=== PATIENT | female | born 1960 | race Caucasian/White ===

== ENCOUNTER 2021-01-04 07:44 | Observation (INO) | payer BC ==
[2021-01-04 08:26] LABS: Urine Blood Negative (Negative); Urine Glucose Negative (Negative); Urine Protein Negative (Negative); Urine Specific Gravity 1.025 (1.005-1.030)
[2021-01-04] MEDS ORDERED: PROMETHAZINE INJ 25 MG/ML AMP ONE ×2 (08:51→11:37)
[2021-01-04] MEDS ORDERED: FENTANYL CITR 100 MCG/2 ML ONE ×3 (08:51→20:29)
[2021-01-04] MEDS ORDERED: FAMOTIDINE 20 MG/2 ML VIAL IV ONE (08:52)
--- NOTE | 2021-01-04 09:32 | RAD REPORT ---
EXAM DESCRIPTION: CT - Abdomen Pelvis W Contrast - 01/04/2021 8:46 am CLINICAL HISTORY: Abdominal pain COMPARISON: none. TECHNIQUE: Computed axial tomography of the abdomen pelvis was obtained. 100 cc Isovue-300 was admin istered intravenously. Oral contrast was not requested which limits evaluation of bowel. All CT scans are performed using dose optimization technique as appropriate and may include automated exposure control or mA/KV adjustment according to patient size. FINDINGS: Multiple gallstones. Mild gallbladder wall thickening. The liver, spleen, pancreas, adrenal and kidneys appear unremarkable. There is no evidence of diverticulitis. Normal appendix. Hysterectomy. Small hiatal hernia IMPRESSION: Cholelithiasis. Mild gallbladder wall thickening may indicate cholecystitis
--- NOTE | 2021-01-04 09:33 | RAD REPORT ---
EXAM DESCRIPTION: US - Abdomen Exam Limited - 01/04/2021 8:41 am CLINICAL HISTORY: Abdominal pain. COMPARISON: None. FINDINGS: Multiple gallstones. Mild gallbladder wall thickening The biliary tree is normal caliber. IMPRESSION: Cholelithiasis. Mild gallbladder wall thickening may indicate cholecystitis.
[2021-01-04 09:39] LABS: Absolute Lymphocytes (CBC) 0.6 K/uL (0.7-4.9); Basophils % 0.4 % (0-1.3); Hematocrit 36.6 % (36.0-45.0); Lymphocytes % 9.2 % (15.3-44.8); MPV 7.8 fL (7.6-11.3); Protime INR 1.12; RBC Red Blood Cell Count 4.07 M/uL (3.86-4.86)
[2021-01-04 09:51] LABS: ALT/SGPT 23 U/L (12-78); AST/SGOT 16 U/L (15-37); Albumin 4.1 g/dL (3.4-5.0); Alkaline Phosphatase 37 U/L (45-117); BUN Blood Urea Nitrogen 19 mg/dL (7-18); Bicarbonate 25 mmol/L (21-32); Bilirubin Direct 0.2 mg/dL (0-0.2); Bilirubin Total 0.7 mg/dL (0.2-1.0); Glucose Level 147 mg/dL (74-106); Lipase 115 U/L (73-393); Magnesium 1.8 mg/dL (1.8-2.4); NT PRO-BNP 213 pg/mL (<125); Protein, Total 7.4 g/dL (6.4-8.2); Sodium Level 138 mmol/L (136-145); Troponin (Emerg Dept Use Only) < 0.02 ng/mL (0.0-0.045)
[2021-01-04] MEDS ORDERED: NA CHLORIDE 0.9% 1,000 ML ONE (09:54)
--- NOTE | 2021-01-04 10:03 | RAD REPORT ---
EXAM DESCRIPTION: [place] Single View01/04/2021 8:54 am CLINICAL HISTORY: Abdominal pain COMPARISON: 2012 FINDINGS: The lungs appear clear of acute infiltrate. The heart is normal size IMPRESSION: No acute abnormalities displayed
[2021-01-04] MEDS ORDERED: Levofloxacin500mg IV 500 MG/100 ML BAG IV ONE (10:40)
--- NOTE | 2021-01-04 10:54 | ER ---
Nurse's Notes [facility] Name: Monalisa Guzman Age: 60 yrs Sex: Female : 1960 Arrival Date: 01/04/2021 Time: 07:48 Bed 13 Private MD: Diagnosis: Other cholelithiasis with obstruction;Acute cholecystitis Presentation: 01/04 07:55 Chief complaint: Patient states: Nausea and RUQ abdominal pain started Sunday and jl7 went to [place], was on clear liquids for 48 hrs, had eggs last night and it started again. Have not been able to follow-up with surgeon yet. Coronavirus screen: Vaccine status: Patient reports being unvaccinated. At this time, the client does not indicate any symptoms associated with coronavirus-19. Ebola Screen: No symptoms or risks identified at this time. Initial Sepsis Screen: Does the patient meet any 2 criteria? No. Patient's initial sepsis screen is negative. Does the patient have a suspected source of infection? No. Patient's initial sepsis screen is negative. Risk Assessment: Do you want to hurt yourself or someone else? Patient reports no desire to harm self or others. Onset of symptoms was January 04, 2021. 07:55 Method Of Arrival: Ambulatory [facility] 07:55 Acuity: HAIM 3 7 Historical: - Allergies: 07:57 Keflex; jl7 07:57 Codeine; jl7 - Home Meds: 07:57 fenofibrate 145 mg oral [Active]; aspirin 325 mg Oral TbEC 1 tab once daily [Active]; jl7 metoprolol tartrate 50 mg Oral tab 1 tab 2 times per day [Active]; fluoxetine 20 mg Oral cap 1 cap once daily [Active]; - PMHx: 07:57 Hypertensive disorder; melanoma; jl7 - PSHx: 07:57 section; Total abdominal hysterectomy; bilateral knees; melanoma removal on 7 right upper arm; - Immunization history:: Client reports having NOT received the Covid vaccine. - Social history:: Smoking status: Patient denies any tobacco usage or history of. - Family history:: not pertinent. Screenin:12 Abuse screen: Denies threats or abuse. Denies injuries from another. Nutritional ch5 screening: No deficits noted. Tuberculosis screening: No symptoms or risk factors identified. Fall Risk None identified. Assessment: 08:12 Reassessment: No changes from previously documented assessment. Pain: Pain currently is ch5 10 out of 10 on a pain scale. GI: Bowel sounds present X 4 quads. Abdomen is tender to palpation Reports nausea, vomiting. 08:12 General: Appears uncomfortable. [facility] 09:36 Reassessment: Patient appears in no apparent distress at this time. General: Appears in ch5 no apparent distress. comfortable. 23:14 Reassessment: Patient appears in no apparent distress at this time. Patient and/or ms4 family updated on plan of care and expected duration. Pain level reassessed. Pain: Complains of pain in right upper quadrant and epigastric area. 01/05 00:20 Reassessment: Patient appears in no apparent distress at this time. No changes from ms4 previously documented assessment. Patient and/or family updated on plan of care and expected duration. Pain level reassessed. Patient is alert, oriented x 3, equal unlabored respirations, skin warm/dry/pink. AWAITING TRANSFER. General: Appears in no apparent distress. Pain: Denies pain. 03:16 Reassessment: Patient appears in no apparent distress at this time. No changes from ms4 previously documented assessment. Patient and/or family updated on plan of care and expected duration. Pain level reassessed. Patient is alert, oriented x 3, equal unlabored respirations, skin warm/dry/pink. Pain: Denies pain. 06:16 Reassessment: Patient appears in no apparent distress at this time. No changes from fl4 previously documented assessment. Patient and/or family updated on plan of care and expected duration. Pain level reassessed. Patient is alert, oriented x 3, equal unlabored respirations, skin warm/dry/pink. General: Appears in no apparent distress. Pain: Denies pain. 08:00 Reassessment: Patient appears in no apparent distress at this time. Hospitalist at [facility] bedside. 09:46 Reassessment: Patient appears in no apparent distress at this time. Resting with eyes [facility] closed, call light in reach, on monitor. Vital Signs: 01/04 07:55 BP 179 / 96; Pulse 57; Resp 21; Temp 97.1; Pulse Ox 100% ; Weight 74.39 kg; Height 5 jl7 ft. 6 in. (167.64 cm); Pain 9/10; 08:12 BP 159 / 77; Pulse 57; Resp 18; Pulse Ox 100% on R/A; Pain 10/10; ch5 10:24 BP 162 / 78; Pulse 63; Resp 18; Pulse Ox 100% on R/A; Pain 2/10; ch5 16:04 BP 148 / 56; Pulse 66; Resp 20; Pulse Ox 100% on R/A; Pain 0/10; ch5 20:51 BP 181 / 93; Pulse 98; Resp 18; Pulse Ox 96% ; Pain 8/10; ms4 09/ 00:19 BP 158 / 82; Pulse 68; Resp 16; Pulse Ox 96% ; Pain 0/10; ms4 04:04 BP 168 / 107; Pulse 72; Resp 18; Pulse Ox 98% ; Pain 0/10; ms4 07:54 BP 158 / 92; Pulse 70; Resp 18; Pulse Ox 99% on R/A; Pain 0/10; ch5 09:43 BP 165 / 93; Pulse 68; Resp 20; Pulse Ox 93% on R/A; ch5 12:13 BP 161 / 94; Pulse 65; Resp 20; Pulse Ox 96% ; Pain 0/10; ch5 01/04 07:55 Body Mass Index 26.47 (74.39 kg, 167.64 cm) jl7 ED Course: 01/04 07:48 Patient arrived in ED. am2 07:57 Triage completed. jl7 07:57 Arm band placed on right wrist. jl7 08:03 Herson Corado MD is Attending Physician. [facility] 08:12 Sheldon Rivas, RN is Primary Nurse. ch5 08:12 Patient has correct armband on for positive identification. Bed in low position. Call ch5 light in reach. Side rails up X2. 08:12 No provider procedures requiring assistance completed. Inserted saline lock: 20 gauge ch5 in left antecubital area, using aseptic technique. 08:[address] and US by wheelchair. ch5 08:41 US Abdomen Limited In Process Unspecified. EDMS 08:46 CT Abd/Pelvis - IV Contrast Only In Process Unspecified. EDMS 08:53 XRAY Chest (1 view) In Process Unspecified. EDMS 09:25 Basic Metabolic Panel Sent. ch5 09:25 CBC with Diff Sent. ch5 09:25 LFT's Sent. ch5 10:52 Alfred Langley MD is Hospitalizing Provider. juan 11:37 Cholangiogram In Process Unspecified. EDMS 19:00 IV discontinued, intact, bleeding controlled. ms4 20:00 Inserted saline lock: 22 gauge in left antecubital area, using aseptic technique. ms4 21:40 still pending a bed from [facility]. mw2 01/05 00:43 initiated a transfer with Hannah from [facility] transfer center. mw2 00:48 [facility] denied due to capacity. mw2 01:08 initiated a transfer with Emily from [facility] transfer center. mw2 01:15 [facility] denied due to capacity. mw2 03:12 Primary Nurse role handed off by Sheldon Rivas, STACY ms4 03:12 Carol Kearney, STACY is Primary Nurse. ms4 03:26 all [facility] denied due to capacity. mw2 07:08 Primary Nurse role handed off by Carol Kearney RN 5 07:08 Sheldon Rivas, RN is Primary Nurse. 5 07:51 Attending Physician role handed off by Herson Corado MD rn 07:51 Orlando Shaw MD is Attending Physician. rn 07:56 Alfred Langley MD is Hospitalizing Provider. rn Administered Medications: 01/04 09:24 Drug: Pepcid (famotidine) 20 mg Route: IVP; Site: left antecubital; 5 09:24 Drug: NS 0.9% 1000 ml Route: IV; Rate: 1 bolus; Site: left antecubital; ch5 09:24 Drug: Phenergan (promethazine) 12.5 mg Route: IVP; Site: left antecubital; ch5 09:24 Not Given (Patient Refused): fentaNYL (PF) 25 mcg IVP once; RASS on ADMIN: Combtv4, ch5 Very Agttd3, Agttd2, Rstlss1, AlertClm0, Drwsy-1, Lt Sdtn-2, Mod Sdtn-3, Dp Sdtn-4, UnArsble-5 10:24 Drug: levofloxacin 500 mg Volume: 100 ml; Route: IVPB; Infused Over: 60 mins; Site: 5 left antecubital; 11:25 Follow up: IV Status: Completed infusion ch5 11:25 Drug: Phenergan (promethazine) 12.5 mg Route: IVP; Site: left antecubital; ch5 12:17 Follow up: Response: Nausea is decreased ch5 12:17 Drug: Potassium Chloride 20 mEq Route: IV; Rate: per protocol; Site: left antecubital; ch5 14:10 Follow up: IV Status: Completed infusion ch5 14:10 Drug: NS 0.9% with KCl 20 mEq/L 1000 ml Route: IV; Rate: 125 ml/hr; Site: left ch5 antecubital; 17:45 Drug: fentaNYL (PF) 25 mcg Route: IVP; Site: left antecubital; ch5 20:52 Drug: fentaNYL (PF) 25 mcg Route: IVP; Site: left antecubital; ms4 20:52 Drug: Zofran (Ondansetron) 4 mg Route: IVP; Site: left antecubital; ms4 22:45 Drug: fentaNYL (PF) 25 mcg Route: IVP; Site: left antecubital; ms4 22:45 Drug: Zofran (Ondansetron) 4 mg Route: IVP; Site: left antecubital; ms4 01/05 04:37 Drug: Promethazine 12.5 mg Route: IVP; Site: left antecubital; ms4 07:43 Drug: D5-1/2 NS 1000 ml Route: IV; Rate: 125 mg/hr; Site: left antecubital; ch5 11:56 Follow up: Response: No adverse reaction ch5 10:08 Drug: Flagyl (metroNIDAZOLE) 500 mg Volume: 100 ml; Route: IVPB; Rate: 200 ml/hr; ch5 Infused Over: 30 mins; Site: left antecubital; 10:54 Follow up: IV Status: Completed infusion ch5 11:00 Drug: Cipro (ciprofloxacin) 400 mg Volume: 200 ml; Route: IVPB; Infused Over: 60 mins; ch5 Site: left antecubital; 11:56 Follow up: IV Status: Completed infusion ch5 Outcome: 01/04 10:54 Decision to Hospitalize by Provider. [facility] 17:00 ER care complete, transfer ordered by . [facility] 01/05 07:57 Decision to Hospitalize by Provider. rn 14:35 Patient left the ED. 5 Signatures: Dispatcher [employer] Herson Allen MD MD cha Nieto, Roman, MD MD rn Lazaro, Brittni 5 Lili Cook RN RN jl7 Abbey Caro [facility] Hayder Dolna 2 Carol Kearney RN RN ms4 RboSheldon RN RN ch5
--- NOTE | 2021-01-04 10:54 | EDPHYS ---
Physician Documentation [facility] Name: Monalisa Guzman Age: 60 yrs Sex: Female : 1960 Arrival Date: 01/04/2021 Time: 07:48 Bed 13 Private MD: ED Physician Orlando Shaw HPI: 01/04 08:18 This 60 yrs old Female presents to ER via Ambulatory with complaints of juan Abdominal Pain, Nausea/Vomiting. 08:18 The patient presents to the emergency department with nausea, vomiting, that is juan intermittent. Onset: The symptoms/episode began/occurred 3 day(s) ago. Possible causes: unknown. The symptoms are aggravated by nothing. Associated signs and symptoms: The patient has no apparent associated signs or symptoms. Severity of symptoms: At their worst the symptoms were moderate in the emergency department the symptoms are unchanged. The patient has not experienced similar symptoms in the past. Historical: - Allergies: 07:57 Keflex; jl7 07:57 Codeine; jl7 - Home Meds: 07:57 fenofibrate 145 mg oral [Active]; aspirin 325 mg Oral TbEC 1 tab once daily [Active]; jl7 metoprolol tartrate 50 mg Oral tab 1 tab 2 times per day [Active]; fluoxetine 20 mg Oral cap 1 cap once daily [Active]; - PMHx: 07:57 Hypertensive disorder; melanoma; jl7 - PSHx: 07:57 section; Total abdominal hysterectomy; bilateral knees; melanoma removal on jl7 right upper arm; - Immunization history:: Client reports having NOT received the Covid vaccine. - Social history:: Smoking status: Patient denies any tobacco usage or history of. - Family history:: not pertinent. ROS: 08:18 Constitutional: Negative for fever, chills, and weight loss, Eyes: Negative for injury, juan pain, redness, and discharge, ENT: Negative for injury, pain, and discharge, Neck: Negative for injury, pain, and swelling, Cardiovascular: Negative for chest pain, palpitations, and edema, Respiratory: Negative for shortness of breath, cough, wheezing, and pleuritic chest pain, Back: Negative for injury and pain, : Negative for injury, bleeding, discharge, and swelling, MS/Extremity: Negative for injury and deformity, Skin: Negative for injury, rash, and discoloration, Neuro: Negative for headache, weakness, numbness, tingling, and seizure, Psych: Negative for depression, anxiety, suicide ideation, homicidal ideation, and hallucinations, Allergy/Immunology: Negative for hives, rash, and allergies, Endocrine: Negative for neck swelling, polydipsia, polyuria, polyphagia, and marked weight changes, Hematologic/Lymphatic: Negative for swollen nodes, abnormal bleeding, and unusual bruising. 08:18 Abdomen/GI: Positive for abdominal pain, nausea and vomiting, of the epigastric area and right upper quadrant. Exam: 08:18 Constitutional: This is a well developed, well nourished patient who is awake, alert, juan and in no acute distress. Head/Face: Normocephalic, atraumatic. Eyes: Pupils equal round and reactive to light, extra-ocular motions intact. Lids and lashes normal. Conjunctiva and sclera are non-icteric and not injected. Cornea within normal limits. Periorbital areas with no swelling, redness, or edema. ENT: Nares patent. No nasal discharge, no septal abnormalities noted. Tympanic membranes are normal and external auditory canals are clear. Oropharynx with no redness, swelling, or masses, exudates, or evidence of obstruction, uvula midline. Mucous membranes moist. Neck: Trachea midline, no thyromegaly or masses palpated, and no cervical lymphadenopathy. Supple, full range of motion without nuchal rigidity, or vertebral point tenderness. No Meningismus. Chest/axilla: Normal chest wall appearance and motion. Nontender with no deformity. No lesions are appreciated. Cardiovascular: Regular rate and rhythm with a normal S1 and S2. No gallops, murmurs, or rubs. Normal PMI, no JVD. No pulse deficits. Respiratory: Lungs have equal breath sounds bilaterally, clear to auscultation and percussion. No rales, rhonchi or wheezes noted. No increased work of breathing, no retractions or nasal flaring. Back: No spinal tenderness. No costovertebral tenderness. Full range of motion. Female : Normal external genitalia. MS/ Extremity: Pulses equal, no cyanosis. Neurovascular intact. Full, normal range of motion. Neuro: Awake and alert, GCS 15, oriented to person, place, time, and situation. Cranial nerves II-XII grossly intact. Motor strength 5/5 in all extremities. Sensory grossly intact. Cerebellar exam normal. Normal gait. Psych: Awake, alert, with orientation to person, place and time. Behavior, mood, and affect are within normal limits. 08:18 Abdomen/GI: Inspection: abdomen appears normal, Bowel sounds: normal, Palpation: mild abdominal tenderness, in the epigastric area and right upper quadrant, Liver: no appreciated palpable abnormalities, Hernia: not appreciated. 09:13 ECG was reviewed by the Attending Physician. [facility] Vital Signs: 07:55 BP 179 / 96; Pulse 57; Resp 21; Temp 97.1; Pulse Ox 100% ; Weight 74.39 kg; Height 5 jl7 ft. 6 in. (167.64 cm); Pain 9/10; 08:12 BP 159 / 77; Pulse 57; Resp 18; Pulse Ox 100% on R/A; Pain 10/10; ch5 10:24 BP 162 / 78; Pulse 63; Resp 18; Pulse Ox 100% on R/A; Pain 2/10; ch5 16:04 BP 148 / 56; Pulse 66; Resp 20; Pulse Ox 100% on R/A; Pain 0/10; ch5 20:51 BP 181 / 93; Pulse 98; Resp 18; Pulse Ox 96% ; Pain 8/10; ms4 09/01 00:19 BP 158 / 82; Pulse 68; Resp 16; Pulse Ox 96% ; Pain 0/10; ms4 04:04 BP 168 / 107; Pulse 72; Resp 18; Pulse Ox 98% ; Pain 0/10; ms4 07:54 BP 158 / 92; Pulse 70; Resp 18; Pulse Ox 99% on R/A; Pain 0/10; ch5 09:43 BP 165 / 93; Pulse 68; Resp 20; Pulse Ox 93% on R/A; ch5 12:13 BP 161 / 94; Pulse 65; Resp 20; Pulse Ox 96% ; Pain 0/10; ch5 01/04 07:55 Body Mass Index 26.47 (74.39 kg, 167.64 cm) jl7 MDM: 01/04 08:03 Patient medically screened. [facility] 08:18 Differential diagnosis: Nonspecific abd pain, gastritis, cholecystitis, pancreatitis, juan appendicitis, diverticulitis, viral gastroenteritis, gastroenteritis. Data reviewed: vital signs, nurses notes, lab test result(s), EKG, radiologic studies, CT scan, plain films, ultrasound. Data interpreted: threat monitoring analyst: rate is 57 beats/min, rhythm is regular, Pulse oximetry: on room air is 100 %. Test interpretation: by ED physician or midlevel provider: ECG, plain radiologic studies. Counseling: I had a detailed discussion with the patient and/or guardian regarding: the historical points, exam findings, and any diagnostic results supporting the discharge/admit diagnosis, lab results, radiology results. 01/05 07:54 ED course: Dr. Dunham consulted by oil house attendant overnight, per oil house attendant, rn Dr. Dunham will agree to see patient for Dora lithiasis/cholecystitis/possible choledocholithiasis. Patient has been unable to be transferred, initially requested transfer given no GI here by Dr. Ortiz. 07:56 Response to treatment: the patient's symptoms have markedly improved after treatment, rn and as a result, I will admit patient. Admission orders: after a detailed discussion of the patient's condition and case, the admit orders are written by me. 01/04 08:18 Order name: Basic Metabolic Panel [facility] 01/04 08:18 Order name: CBC with Diff [facility] 01/04 08:18 Order name: LFT's [facility] 01/04 08:18 Order name: Magnesium; Complete Time: 10:49 [facility] 01/04 08:18 Order name: NT PRO-BNP; Complete Time: 10:49 [facility] 01/04 08:18 Order name: PT-INR; Complete Time: 09:46 [facility] 01/04 08:18 Order name: Troponin (emerg Dept Use Only); Complete Time: 10:49 [facility] 01/04 08:18 Order name: Lipase; Complete Time: 10:49 [facility] 01/04 08:18 Order name: Basic Metabolic Panel; Complete Time: 10:49 [facility] 01/04 08:18 Order name: CBC with Automated Diff; Complete Time: 10:49 [facility] 01/04 08:18 Order name: Liver (Hepatic) Function; Complete Time: 10:49 [facility] 01/04 08:26 Order name: Urine Dipstick-Ancillary [facility] 01/04 09:46 Order name: CREATININE WHOLE BLOOD; Complete Time: 09:47 [facility] 01/04 08:18 Order name: XRAY Chest (1 view); Complete Time: 10:49 [facility] 01/04 08:18 Order name: CT Abd/Pelvis - IV Contrast Only; Complete Time: 09:46 [facility] 01/04 08:18 Order name: US Abdomen Limited; Complete Time: 09:46 [facility] 01/04 09:18 Order name: Cholangiogram; Complete Time: 16:56 [facility] 01/04 14:39 Order name: SARS-COV-2 RT PCR; Complete Time: 16:56 [facility] 01/04 18:22 Order name: Urinalysis; Complete Time: 20:05 [facility] 01/04 08:18 Order name: EKG; Complete Time: 08:18 [facility] 01/04 08:18 Order name: Cardiac monitoring; Complete Time: 09:25 [facility] 01/04 08:18 Order name: EKG - Nurse/Tech; Complete Time: 09:25 [facility] 01/04 08:18 Order name: IV Saline Lock; Complete Time: 08:21 [facility] 01/04 08:18 Order name: Labs collected and sent; Complete Time: 08:21 [facility] 01/04 08:18 Order name: O2 Per Protocol; Complete Time: 09:25 [facility] 01/04 08:18 Order name: O2 Sat Monitoring; Complete Time: 09:25 [facility] 01/04 08:30 Order name: Labs - recollect needed; Complete Time: 09:25 aa 01/05 08:43 Order name: CONS Physician Consult EDMS EC/31 09:13 Rate is 63 beats/min. Rhythm is regular. QRS [place] is Normal. [place] interval is normal. QRS juan interval is normal. QT interval is normal. No Q waves. T waves are Normal. No ST changes noted. Clinical impression: NSR w/ Non-specific ST/T Changes and No evidence of ischemia. Administered Medications: 09:24 Drug: Pepcid (famotidine) 20 mg Route: IVP; Site: left antecubital; ch5 09:24 Drug: NS 0.9% 1000 ml Route: IV; Rate: 1 bolus; Site: left antecubital; ch5 09:24 Drug: Phenergan (promethazine) 12.5 mg Route: IVP; Site: left antecubital; ch5 09:24 Not Given (Patient Refused): fentaNYL (PF) 25 mcg IVP once; RASS on ADMIN: Combtv4, ch5 Very Agttd3, Agttd2, Rstlss1, AlertClm0, Drwsy-1, Lt Sdtn-2, Mod Sdtn-3, Dp Sdtn-4, UnArsble-5 10:24 Drug: levofloxacin 500 mg Volume: 100 ml; Route: IVPB; Infused Over: 60 mins; Site: ch5 left antecubital; 11:25 Follow up: IV Status: Completed infusion ch5 11:25 Drug: Phenergan (promethazine) 12.5 mg Route: IVP; Site: left antecubital; ch5 12:17 Follow up: Response: Nausea is decreased ch5 12:17 Drug: Potassium Chloride 20 mEq Route: IV; Rate: per protocol; Site: left antecubital; ch5 14:10 Follow up: IV Status: Completed infusion ch5 14:10 Drug: NS 0.9% with KCl 20 mEq/L 1000 ml Route: IV; Rate: 125 ml/hr; Site: left ch5 antecubital; 17:45 Drug: fentaNYL (PF) 25 mcg Route: IVP; Site: left antecubital; ch5 20:52 Drug: fentaNYL (PF) 25 mcg Route: IVP; Site: left antecubital; ms4 20:52 Drug: Zofran (Ondansetron) 4 mg Route: IVP; Site: left antecubital; ms4 22:45 Drug: fentaNYL (PF) 25 mcg Route: IVP; Site: left antecubital; ms4 22:45 Drug: Zofran (Ondansetron) 4 mg Route: IVP; Site: left antecubital; ms4 01/05 04:37 Drug: Promethazine 12.5 mg Route: IVP; Site: left antecubital; ms4 07:43 Drug: D5-1/2 NS 1000 ml Route: IV; Rate: 125 mg/hr; Site: left antecubital; ch5 11:56 Follow up: Response: No adverse reaction ch5 10:08 Drug: Flagyl (metroNIDAZOLE) 500 mg Volume: 100 ml; Route: IVPB; Rate: 200 ml/hr; ch5 Infused Over: 30 mins; Site: left antecubital; 10:54 Follow up: IV Status: Completed infusion ch5 11:00 Drug: Cipro (ciprofloxacin) 400 mg Volume: 200 ml; Route: IVPB; Infused Over: 60 mins; ch5 Site: left antecubital; 11:56 Follow up: IV Status: Completed infusion ch5 Disposition Summary: 01/05/21 07:57 Hospitalization Ordered Hospitalization Status: Inpatient Admission(01/05/21 07:57) rn Provider: Alfred Langley(01/05/21 07:57) rn Condition: Stable(01/05/21 07:57) rn Problem: an ongoing problem(01/05/21 07:57) rn Symptoms: have improved(01/05/21 07:57) rn Bed/Room Type: Standard(01/05/21 07:57) rn Location: [facility] ER HOLD(01/05/21 11:49) bd Room Assignment: ERHOLD-(01/05/21 11:49) bd Diagnosis - Other cholelithiasis with obstruction(01/05/21 07:57) rn - Acute cholecystitis(01/05/21 07:57) rn Forms: - Medication Reconciliation Form rn - SBAR form rn Signatures: Dispatcher [employer] EDMS Taisha Kaye Corey, MD MD cha Nieto, Roman, MD MD rn Calderon, Audri, RN RN aa5 Lili Cook RN RN jl7 Natty Mullins MD MD ma2 Carol Kearney RN RN ms4 Sheldon Rivas, RN RN ch5 Corrections: (The following items were deleted from the chart) 01/04 13:44 13:03 CORONAVIRUS+.SUSANZ ordered. EDMS EDMS 16:59 10:54 Observation juan juan 16:59 10:54 Alfred Langley juan juan 16:59 10:54 Telemetry/MedSurg (Inpatient) juan juan 16:59 10:54 Stable juan juan 16:59 10:54 new juan juan 16:59 10:54 have improved juan juan 16:59 10:54 Standard juan juan 16:59 10:54 juan juan 16:59 10:54 Other cholelithiasis with obstruction juan juan 16:59 10:54 Acute cholecystitis juan juan 16:59 10:54 Hypokalemia juan juan 16:59 10:54 Abdominal tenderness juan juan 01/05 07:52 01/04 17:00 [facility] juan aclix 01/05 07:52 01/04 17:00 [facility] juan rn 01/05 07:52 01/04 17:00 Higher level of care juan rn 01/05 07:52 01/04 17:00 Fair juan rn 01/05 07:52 01/04 17:00 new juan rn 01/05 07:52 01/04 17:00 have improved juan rn 01/05 07:52 01/04 17:00 Other cholelithiasis with obstruction juan rn 01/05 07:52 01/04 17:00 Hypokalemia juan rn 01/05 07:52 01/04 17:00 Upper abdominal pain, unspecified juan rn 01/05 07:52 01/04 17:00 Calculus of gallbladder and bile duct with acute cholecystitis with rn obstruction juan 01/05 11:49 07:57 Telemetry/MedSurg (Inpatient) rn bd 11:49 07:57 rn bd
[2021-01-04] MEDS ORDERED: POTASSIUM CL SA 10 MEQ TAB PO ONE (11:51)
[2021-01-04] MEDS ORDERED: KCL 20 MEQ/100 mL IVPB 20 MEQ/100 ML BAG IV ONE (11:52)
[2021-01-04] MEDS ORDERED: NS KCL 20MEQ 1,000 ML IV ONE ×2 (11:55→22:52)
--- NOTE | 2021-01-04 12:14 | RAD REPORT ---
EXAM DESCRIPTION: MRICholangiogram01/04/2021 11:55 am CLINICAL HISTORY: Abdominal pain COMPARISON: January 04, 2021 cat scan and ultrasound TECHNIQUE: Magnetic resonance cholangiogram was performed.3D MIP reconstruction performed FINDINGS: Multiple small gallstones. Borderline dilatation of the common bile duct. Small stones suspected within the distal common bile d uct Pancreatic duct is normal caliber IMPRESSION: Cholelithiasis Borderline dilatation of the common bile duct. A small stone is suspected within distal common bile duct
[2021-01-04 18:33] LABS: Urine Appearance CLEAR (Clear); Urine Bilirubin NEGATIVE (Negative); Urine Blood NEGATIVE (Negative); Urine Color YELLOW (Yellow); Urine Glucose NEGATIVE (Negative); Urine Microscopic Reflex NO UMIC; Urine Protein NEGATIVE (Negative); Urine pH 7.5 (5.0-7.0)
--- NOTE | 2021-01-04 18:39 | CON ---
Date of Consultation: 01/04/2021 Brief History Of Present Illness: The patient is a 60-year-old female, who presents with a bdominal pain beginning approximately on Sunday, predominantly in the mid epigastric area associate d with nausea, vomiting. She noted nausea and vomiting, which are dominant, symptoms got worse, prog ressive to where she could not keep anything down. She noted that she had some minimal pain in the r ight upper quadrant, mostly tenderness; however, she had mild pain only. She went to [place] [facility] where an imaging was performed, which showed cholelithiasis. She was transferred here for higher level of care. Ultimately, repeat CT scan and ultrasound were performed here in addition to MRCP during her w orkup. She denies any fever, chills. Nausea is her predominant symptom. No systemic complaints. No sick contacts. No recent travel. No food exposures and she has no COVID exposures. Past Medical History: Hypertension, CVA, melanoma. Past Surgical History: Includes , total abdominal hysterectomy, bilateral knee surgery ____ surgery in the right upper extremity with revision. Had a complete axillary dissection on the right. She additionally had a urinary procedure, she cannot recall when she was 6 years old in her lower pelvis. Home Medications: Include fenofibrate, aspirin 325 mg, metoprolol, fluoxetine. Allergies: SHE HAS ALLERGIES TO KEFLEX AND CODEINE. Social History: She denies smoking, alcohol, or recreational drug use. Review of Systems: Ten-point review of systems other than HPI, denies. Physical Examination: General: At the time of my examination, she is awake, alert, and oriented. Psychiatric: She is appropriate, conversive. HEENT: She is normocephalic. Sclerae anicteric. Mucous membranes are moist. Oropharynx clear. Neck: Supple without JVD. Chest: Normal expansion and excursion. Cardiovascular: Regular rate and rhythm. Pulmonary: Clear to auscultation bilaterally. Abdomen: Soft with minimal right upper quadrant tenderness only to deep palpation. Negative Major sign. No rebound. No guarding. No focal peritonitis. Extremities: No clubbing, cyanosis, or edema. Skin: Warm and dry. She has a well-healed surgical scar on the right upper extremity from her melan reese surgery. Laboratory Data: She had laboratory exam, which reveals a white blood cell count of 6.4, hemoglobin 12.4, hematocrit of 36.6, platelet count 303. Coagulation shows PT , INR 1.12. Sodium was 138, potassium 3.0, chloride 105, carbon dioxide 25, BUN 19, creatinine 0.7, glucose is 147, calcium 9.0, total bilirubin 0.7, direct component 0.2, AST 16, ALT 23, alkaline phosphatase 37, lipase 115. Urine showed trace ketones only. Her COVID test was negative. She had imaging performed, which in cluded an abdominal ultrasound, which was officially read as cholelithiasis, mild gallbladder wall th ickening may indicate cholecystitis. Biliary tree is normal in caliber. She had a CT abdomen and pe lvis CT, which was officially read as multiple gallstones, mild gallbladder wall thickening, small hi atal hernia. She additionally had an MRCP, which was officially read as cholelithiasis, borderline d ilatation of common bile duct, small stone suspected within the distal common bile duct. Assessment And Plan: This is a 60-year-old female, who comes in with signs and symptoms of possible choledocholithiasis. 1.IV fluid hydration. 2.Antibiotic coverage. 3.The patient is due to get ERCP, but we have no GI consultation. As such, the patient is being tra nsferred for higher level of care at this point for ERCP if the patient is available to return. I hilario ve explained the risks, benefits, and alternatives of laparoscopic possible open cholecystectomy incl uding, but not limited to bleeding, infection, damage to surrounding tissue, need for further operati on and procedures, injury to bile ducts, intestines, bile leak, and other unforeseen complication related to anesthesia. The patient agrees to proceed as opal cated. TK/MODL Voice ID: [id number] Report ID: [id number]
[2021-01-04] MEDS ORDERED: ONDANSETRON 4 MG/2 ML VIAL ONE (20:29)
[2021-01-05] MEDS ORDERED: PROMETHAZINE INJ 25 MG/ML AMP ONE (04:53)
[2021-01-05] MEDS ORDERED: NA CHLORIDE 0.9% 50 ML ONE (04:54)
[2021-01-05] MEDS ORDERED: D5 0.45 NS 1,000 ML IV ONE (08:01)
[2021-01-05] MEDS ORDERED: HYDROMORPHONE HCL 0.5 MG/0.5 ML INJ IV PRN (09:22)
--- NOTE | 2021-01-05 09:31 | P.HP ---
Certification for Inpatient Patient admitted to: Observation With expected LOS: <2 Midnights Patient will require the following post-hospital care: None Practitioner: I am a practitioner with admitting privileges, knowledge of patient current condition, hospital course, and medical plan of care. Services: Services provided to patient in accordance with Admission requirements found in Title 42 Section 412.3 of the Code of Federal Regulations Patient History Date of Service: 01/05/21 Primary Care Provider: unkown Reason for admission: Cholecystitis History of Present Illness: Patient is a pleasant woman her for cholecystitis. She has a past medical history of CVA, htn and hypertriglyceridemia. She has allergies to keflex and codeine. She has been having nausea and abdominal pain for the last 3 days starting on Sunday. as it was worsening the patient came to the ER Was found to have a gallstone. Review of Systems 10-point ROS is otherwise unremarkable Gastrointestinal: Nausea, Abdominal Pain Physical Examination - Physical Exam General: Alert, In no apparent distress HEENT: Atraumatic, PERRLA, Mucous membr. moist/pink, EOMI, Sclerae nonicteric Neck: Supple, 2+ carotid pulse no bruit, No LAD, Without JVD or thyroid abnormality Respiratory: Clear to auscultation bilaterally, Normal air movement Cardiovascular: Regular rate/rhythm, Normal S1 S2 Gastrointestinal: Normal bowel sounds, Tenderness Musculoskeletal: No tenderness Integumentary: No rashes Neurological: Normal gait, Normal speech, Normal strength at 5/5 x4 extr, Normal tone, Normal affect Lymphatics: No axilla or inguinal lymphadenopathy - Studies Laboratory Data (last 24 hrs) 01/04/21 09:22: PT 12.9 H, INR 1.12 01/04/21 09:22: WBC 6.40, Hgb 12.4, Hct 36.6, Plt Count 303 01/04/21 09:22: Sodium 138, Potassium 3.0 L, BUN 19 H, Creatinine 0.70, Glucose 147 H, Magnesium 1.8, Total Bilirubin 0.7, AST 16, ALT 23, Alkaline Phosphatase 37 L, Lipase 115 Assessment and Plan - Problems (Diagnosis) (1) Cholecystitis Current Visit: Yes Status: Acute Plan: Will consult Dr. Dunham. start her on fluids and pain medications Will keep her npo for now (2) HTN (hypertension) Current Visit: Yes Status: Acute Plan: will treat her with the home medications Adjust as needed Qualifiers: Hypertension type: primary hypertension Qualified Code(s): I10 - Essential (primary) hypertension (3) Hypertriglyceridemia Current Visit: Yes Status: Acute Plan: check fasting lipids. Will consider a statin more aggresively as she has a his tory of cva Discharge Plan: Home - Advance Directives Does patient have a Living Will: No Does patient have a Durable POA for Healthcare: No - Code Status/Comfort Care Code Status Assessed: Yes Code Status: Full Code Critical Care: No Time Spent Managing Pts Care (In Minutes): 40
[2021-01-05] MEDS ORDERED: D5 0.45 NS 1,000 ML IV SCH (10:00)
[2021-01-05] MEDS ORDERED: METRONIDAZOLE 500mg IVPB 500 MG/100 ML BAG IV ONE (10:17)
[2021-01-05] MEDS ORDERED: CIPROFLOXACIN 400mg IV 400 MG/200 ML BAG IV ONE (10:17)
--- NOTE | 2021-01-05 13:42 | P.HP ---
Date of Service: 01/05/21 PC: This 60-year-old female presents to the emergency room with severe right upper quadrant abdominal pain, nausea, for diagnosis and treatment. HPC: Patient had a similar episode to this a number of years ago. Did not have an investigation done at that time. Over the last couple of months she has lost approximately 60 pounds through diet. 48 hours ago she began to experience severe right upper quadrant abdominal pain, radiating into her back, associated with overwhelming nausea. She could no longer stand and came to the emergency room PSHx: Previous , hysterectomy, kidney surgery PMHx: NAD Social Hx: Allergic to cephalexin and codeine Sys R: No cough, wheeze, shortness of breath. No chest pain or palpitations. Denies any urinary complaints O/E: Awake alert vital signs are stable HEENT: Within normal limits Chest: Chest movement equal bilaterally Abd: Mild right upper quadrant tenderness [place]: Intact Data: As documented gallstones, possible choledocholithiasis Impression: Cholecystitis with cholelithiasis Plan: I will take to the operating room for laparoscopic cholecystectomy with intraoperative cholangiogram. The risks of this procedure have been discussed. The possibility of bleeding, infection, injury to bile ducts blood vessels and intestines was outlined. Clinically she may have already passed a gallstone. We will do a cholangiogram. I explained to her that should be fine a common bile duct stone it may be necessary for a second procedure namely an ERCP. We may have to schedule this as an outpatient as transfer of patients into the hospital is difficult due to Covid. She understands and wants to proceed.
[2021-01-05] MEDS ORDERED: MIDAZOLAM HCL 2 MG/2 ML INJ ONE (14:13)
[2021-01-05] MEDS ORDERED: propofoL 200 MG/20 ML VIAL IV ONE (14:13)
[2021-01-05] MEDS ORDERED: FENTANYL CITR 100 MCG/2 ML ONE ×2 (14:13→16:14)
[2021-01-05] MEDS ORDERED: ROCURONIUM 50 MG/5 ML VIAL IV ONE ×2 (14:14→16:23)
[2021-01-05] MEDS ORDERED: LIDOCAINE 2% MPF 5 ML VIAL ONE (14:14)
[2021-01-05] MEDS ORDERED: ONDANSETRON 4 MG/2 ML VIAL ONE ×2 (14:14→17:00)
[2021-01-05] MEDS ORDERED: Ringers Lactate 1,000 ML IV ONE ×2 (14:25→16:28)
[2021-01-05] MEDS ORDERED: BUPIVACAINE 0.5% PF 10 ML VIAL ONE (14:46)
[2021-01-05] MEDS ORDERED: EPHEDRINE SULF 50 MG/ML VIAL ONE ×3 (15:50→15:52)
[2021-01-05] MEDS ORDERED: dexAMETHasone 10 MG/ML VIAL ONE (16:26)
[2021-01-05] MEDS ORDERED: ONDANSETRON 4 MG/2 ML VIAL IV PRN (16:48)
[2021-01-05] MEDS ORDERED: MORPHINE 4 MG/ML SYR IV PRN (16:48)
--- NOTE | 2021-01-05 16:48 | P.OP ---
Preoperative diagnosis: Acute on chronic cystitis with cholelithiasis, possible choledocholithiasis Postoperative diagnosis: Acute on chronic cholecystitis with cholelithiasis Primary procedure: Laparoscopic cholecystectomy Secondary procedure: Cholangiogram Anesthesia: General Estimated blood loss: Less than 20 cc Specimen: Gallbladder and contents Operative Technique: The patient was brought to the operating room and placed supine on the table. After the induction of adequate general endotracheal anesthesia, the abdomen was prepped with a DuraPrep solution, and the patient was draped in usual aseptic manner. A subumbilical incision was made. This was brought down through the skin and subcutaneous tissue. The Visiport was now used to enter the peritoneal cavity and created pneumoperitoneum to approximately 12 mmHg. Under direct vision a 5 mm trocar was placed in the upper midline, and 2 other 5 mm trochars on the right lateral side of the abdomen. With the patient placed in reverse Trendelenburg and the table rolled towards the left we were able to visualize the right upper quadrant. We could see a markedly distended gallbladder showing signs of acute cholecystitis as well as distention. Imaging was stuck to the serosal surface with both acute and chronic adhesions. This omentum was dissected off the serosal surface of the gallbladder. It showed marked Vascular congestion. We are able to place a grasper on the fundus. Applying lateral traction with a grasper on the fundus, we were able to detach serosal adhesions of the omentum that were along the body down towards Walls's pouch. Walls's pouch having been cleared, now allowed us to place a grasper on the structure. Gentle dissection allowed us to expose the cystic duct and artery. Having obtained a critical view, a clip was placed between the gallbladder and the cystic duct. An opening was made into the cystic duct through which we were able to obtain a cholangiogram. The cholangiogram showed good flow of contrast into the duodenum, no filling defects were noted. The catheter was then removed. Clips were placed on the distal portion of the cystic duct. Due to the amount of edema in the area, I felt more secure ligating the cystic duct with 2 ligatures of chromic suture placed using the Endoloop. A clip was then placed on top of these. The cystic artery was identified, clipped and divided in the usual fashion. The gallbladder was now dissected free from the liver bed, placed into an Endo Catch, and brought out through the umbilical trocar site. At this point we were able to replace the umbilical trocar. We reinflated the pneumoperitoneum. The right upper quadrant was then inspected to ensure adequate hemostasis. It was then irrigated with a copious amount of a saline solution. At this point attention was turned back towards the umbilicus. With a 5 mm camera in the upper trocar we were able to approximate the fascial defect using the Endo Close and 1 absorbable suture. A good airtight and watertight seal having been obtained, the pneumoperitoneum was now collapsed. The trochars were now removed, and deisi applied to the skin. At the end of the procedure the patient was in a stable condition when wheeled to the recovery room. Needle sponge instrument count were correct. No drains were placed. Complications: None Transferred to: Recovery Room Condition: Good
[2021-01-05] MEDS ORDERED: ENOXAPARIN 40 MG/0.4 ML SQ SCH (17:00)
[2021-01-05] MEDS ORDERED: GLYCOPYRROLATE 0.2 MG/ML SYR ONE (17:00)
[2021-01-05] MEDS ORDERED: NEOSTIGMINE 1 MG/ML -5 ML ONE (17:00)
[2021-01-05] MEDS ORDERED: Levofloxacin500mg IV 500 MG/100 ML BAG IV SCH (17:00)
[2021-01-05 17:28] VITALS: O2SAT 97
--- NOTE | 2021-01-05 17:42 | RAD REPORT ---
EXAM DESCRIPTION: RAD - Cholangiogram Oper-Xray Or - 01/05/2021 5:31 pm FINDINGS: Fluoro time was 0.2 minutes. Cumulative dose was 3.50 mGy There were 6 portable C-arm views submitted from a fluoroscopic assisted intraoperative cholangiogram . From the selected images submitted, no common duct stone is identifiable. No stricture, mass or other common duct abnormality identifiable.
[2021-01-05] MEDS: TRAMADOL 37.5mg/APAP 325mg PER TAB PO PRN (17:57)
[2021-01-05 18:05] VITALS: BMI 26.4
[2021-01-06] MEDS: Ringers Lactate 1,000 ML IV SCH ×2 (00:09→03:00)
[2021-01-06] MEDS: TRAMADOL 37.5mg/APAP 325mg PER TAB PO PRN ×2 (00:09→06:06)
[2021-01-06 06:18] LABS: Absolute Lymphocytes (CBC) 0.5 K/uL (0.7-4.9); Basophils % 0.1 % (0-1.3); Hematocrit 35.2 % (36.0-45.0); Lymphocytes % 7.4 % (15.3-44.8); MPV 7.4 fL (7.6-11.3); RBC Red Blood Cell Count 3.99 M/uL (3.86-4.86)
[2021-01-06 06:34] LABS: ALT/SGPT 47 U/L (12-78); AST/SGOT 62 U/L (15-37); Albumin 3.5 g/dL (3.4-5.0); Alkaline Phosphatase 38 U/L (45-117); BUN Blood Urea Nitrogen 10 mg/dL (7-18); Bicarbonate 27 mmol/L (21-32); Bilirubin Total 0.8 mg/dL (0.2-1.0); Glucose Level 121 mg/dL (74-106); HDL Cholesterol 70 mg/dL (40-60); LDL Cholesterol, Calculated 77 (<130); Potassium 3.5 mmol/L (3.5-5.1); Protein, Total 6.8 g/dL (6.4-8.2); Sodium Level 131 mmol/L (136-145)
[2021-01-06 13:12] VITALS: BP 197/94; TEMP 97
--- NOTE | 2021-01-06 17:19 | P.DS ---
Admission Date: 01/05/21 Discharge Date: 01/06/21 Primary Care Provider: tejas Disposition: ROUTINE DISCHARGE Discharge Condition: GOOD Reason for Admission: Cholecystitis - Problems (1) Cholecystitis Status: Acute (2) HTN (hypertension) Status: Acute Qualifiers: Hypertension type: primary hypertension Qualified Code(s): I10 - Essential (primary) hypertension (3) Hypertriglyceridemia Status: Acute Brief History of Present Illness: Patient is a pleasant woman her for cholecystitis. She has a past medical history of CVA, htn and hypertriglyceridemia. She has allergies to keflex and codeine. She has been having nausea and abdominal pain for the last 3 days starting on Sunday. as it was worsening the patient came to the ER Was found to have a gallstone. Hospital Course: Patient was admitted for cholelithiasis She had a cholecystectomy wtih Dr. Dunham. She is doing better. Eating and walking the hallways. Will discharger her home. Have the patietn follow up with Dr. Dunham and her pcp. Thank you for allowing us to take part in her care. Vital Signs/Physical Exam: Temp Pulse Resp BP Pulse Ox 97.0 F 70 16 197/94 H 95 01/06/21 12:00 01/06/21 12:00 01/06/21 12:00 01/06/21 12:00 01/06/21 12:00 General: Alert, In no apparent distress HEENT: Atraumatic, PERRLA, EOMI Neck: Supple, JVD not distended Respiratory: Clear to auscultation bilaterally, Normal air movement Cardiovascular: Regular rate/rhythm, Normal S1 S2 Gastrointestinal: Normal bowel sounds, No tenderness Musculoskeletal: No tenderness Integumentary: No rashes Neurological: Normal speech, Normal tone, Normal affect Lymphatics: No axilla or inguinal lymphadenopathy Laboratory Data at Discharge: WBC 6.30 K/uL (4.3-10.9) 01/06/21 05:57 Hgb 12.4 g/dL (12.0-15.0) 01/06/21 05:57 Hct 35.2 % (36.0-45.0) L 01/06/21 05:57 Plt Count 286 K/uL (152-406) 01/06/21 05:57 PT 12.9 SECONDS (9.5-12.5) H 01/04/21 09:22 INR 1.12 01/04/21 09:22 Sodium 131 mmol/L (136-145) L 01/06/21 05:57 Potassium 3.5 mmol/L (3.5-5.1) 01/06/21 05:57 BUN 10 mg/dL (7-18) 01/06/21 05:57 Creatinine 0.62 mg/dL (0.55-1.3) 01/06/21 05:57 Glucose 121 mg/dL (74-106) H 01/06/21 05:57 Magnesium 1.8 mg/dL (1.8-2.4) 01/04/21 09:22 Total Bilirubin 0.8 mg/dL (0.2-1.0) 01/06/21 05:57 AST 62 U/L (15-37) H 01/06/21 05:57 ALT 47 U/L (12-78) 01/06/21 05:57 Alkaline Phosphatase 38 U/L (45-117) L 01/06/21 05:57 Triglycerides 68 mg/dL (<150) 01/06/21 05:57 Cholesterol 161 mg/dL (<200) 01/06/21 05:57 HDL Cholesterol 70 mg/dL (40-60) H 01/06/21 05:57 Cholesterol/HDL Ratio 2.30 01/06/21 05:57 Lipase 115 U/L (73-393) 01/04/21 09:22 Home Medications: Aspirin [Aspirin EC 325 MG] 325 mg PO DAILY 01/06/21 Fenofibrate [Tricor] 145 mg PO DAILY 01/06/21 RX: Fluoxetine HCl 20 mg PO DAILY 01/06/21 RX: Metoprolol Tartrate 50 mg PO BID 01/06/21 Diet: Regular Activity: Ad tyrese Followup: Tucker Dunham MD [ACTIVE - CAN ADMIT] - Manny Major MD [Primary Care Provider] - Physician Review: Patient Assessed, Agree with Above Assessment and Plan Time spent managing pt's care (in minutes): 30
== END 2021-01-06 12:58 | disposition home or self-care (01) ==
LOC: ER 07:44 → ERHOLD 01-05 08:39 → 2ND 01-05 17:30
PROVIDERS: ADMIT Internal Medicine; ATTEND Internal Medicine
PROC: BF10YZZ Fluoroscopy of Bile Ducts using Other Contrast (ICD-10-PCS; 2021-01-05)
PROC: 0FT44ZZ Resection of Gallbladder, Percutaneous Endoscopic Approach (ICD-10-PCS; principal; 2021-01-05 14:15)
DX: K80.12 Calculus of gallbladder with acute and chronic cholecystitis without obstruction (principal); I10 Essential (primary) hypertension; E78.1 Pure hyperglyceridemia; Z88.6 Allergy status to analgesic agent; Z88.1 Allergy status to other antibiotic agents; Z86.73 Personal history of transient ischemic attack (TIA), and cerebral infarction without residual deficits; Z85.820 Personal history of malignant melanoma of skin; Z90.710 Acquired absence of both cervix and uterus
CPT/HCPCS: 96365; 96367; 93005; 85025 ×2; 80048; 36415 ×2; 83735; 85610; 80061; 82565; 80076; 88304; 81003 ×2; 84484; 83690; 80053; 83880; 74177; 74300; 71045; 74181; 76705; 96375; 99284; 96366; 47563; U0003; Q9967; J2704; J2550 ×3; J3480 ×3; J2250; J3010 ×4; J1100; J2710; J7799; J7120 ×3; J7030; J2405 ×3; J0744; G0378 ×3